=== PATIENT | female | born 1980 | race African-American/Black ===

== ENCOUNTER 2017-06-18 19:05 | Emergency (ER) | payer BC, OTHER ==
[~2017-06-18] VITALS: Ht 175.3 cm; Wt 81.6 kg
[2017-06-18 19:25] VITALS: BP_SYST 158
[2017-06-18 20:50] LABS: BASOPHILS # (AUTO) 0.3 K/uL (0.0-0.2); BASOPHILS % (AUTO) 4.2 % (0.0-2.0); EOSINOPHILS # (AUTO) 0.1 K/uL (0.0-0.4); EOSINOPHILS % (AUTO) 1.2 % (0.0-4.0); HEMATOCRIT 40.6 % (36-48); HEMOGLOBIN 13.1 g/dL (12.0-16.0); LYMPHOCYTES # (AUTO) 1.8 K/uL (1.0-5.5); LYMPHOCYTES % (AUTO) 26.5 % (20.5-51.5); MEAN CORPUSCULAR HEMOGLOBIN 25 pg (27-31); MEAN CORPUSCULAR HGB CONC 32 % (32-36); MEAN CORPUSCULAR VOLUME 77 fL (79.0-98.0); MONOCYTES # (AUTO) 0.8 K/uL (0.0-1.0); NEUTROPHILS # (AUTO) 3.6 K/uL (1.8-7.7); NEUTROPHILS % (AUTO) 56.1 % (40.0-70.0); PLATELET COUNT (AUTO) 439 K/uL (130-430); RED BLOOD CELL COUNT(AUTO) 5.27 MIL/uL (4.2-6.2); WHITE BLOOD COUNT (AUTO) 6.6 K/uL (4.8-10.8)
[2017-06-18 21:02] LABS: CALCIUM 9.2 mg/dL (8.4-11.0); CREATININE 0.86 mg/dL (0.55-1.30); POTASSIUM 3.7 mmol/L (3.5-5.1)
[2017-06-18 21:04] LABS: PROTHROMBIN TIME 9.8 SECS (9.5-12.5)
[2017-06-18 21:06] LABS: ALBUMIN 3.2 g/dL (3.4-4.8); TOTAL BILIRUBIN 0.2 mg/dL (0.0-1.0)
[2017-06-18 21:39] LABS: BILIRUBIN,URINE NEGATIVE (NEGATIVE); CLARITY/URINE HAZY (CLEAR); COLOR,URINE YELLOW (YELLOW); GLUCOSE,URINE NEGATIVE (NEGATIVE); KETONES,URINE NEGATIVE (NEGATIVE); LEUKOCYTE ESTERASE ,URINE TRACE (NEGATIVE); NITRITE, URINE NEGATIVE (NEGATIVE); PH,URINE 8.5 (5.0-8.0); PROTEIN URINE NEGATIVE (NEGATIVE); UROBILINOGEN,URINE 0.2 (0.2-1.0)
[2017-06-18 21:40] LABS: BLOOD, URINE TRACE (NEGATIVE)
[2017-06-18 22:02] LABS: BACTERIA,URINE MODERATE /HPF (None Seen); RBC,URINE 0-3 /HPF (0-3)
[2017-06-18 22:03] LABS: MUCUS,URINE None Seen /LPF (None Seen)
[2017-06-18 22:05] VITALS: BP_SYST 150
== END 2017-06-18 22:05 | disposition home or self-care (01) ==
LOC: SED 19:05
DX: R56.9 Unspecified convulsions (principal); R07.89 Other chest pain
CPT/HCPCS: 36415; 70450-TC; 71045; 80053; 81000-TC; 82550-TC; 82553-TC; 83735-TC; 83880; 84484; 85025; 85610-TC; 85730-TC; 87086; 93005; 99283